=== PATIENT | male | born 1945 | race Caucasian/White ===

== ENCOUNTER 2022-03-28 03:18 | Inpatient (IN) | payer BC ==
[~2022-03-28] VITALS: Ht 177.8 cm; Wt 72.6 kg
[2022-03-28 04:50] LABS: HEMATOCRIT 45.5 % (36.7-47.1); MEAN CORPUSCULAR HEMOGLOBIN 35.7 uug (23.8-33.4); MEAN CORPUSCULAR VOLUME 104.3 fL (73.0-96.2); PLATELET COUNT (AUTO) 82 K/uL (152-348)
[2022-03-28 05:01] LABS: CARBON DIOXIDE 26 mmol/L (21-32); CHLORIDE 109 mmol/L (98-107); CREATININE 0.8 mg/dL (0.6-1.3); ETHANOL 18 MG/DL (0-0); GLUCOSE 91 mg/dL (74-106); POTASSIUM 3.9 mmol/L (3.5-5.1); UREA NITROGEN, BLOOD 15 mg/dL (7-18)
[2022-03-28 05:07] LABS: ALANINE AMINOTRANSFERASE 24 U/L (16-63); ALKALINE PHOSPHATASE 82 U/L (50-136); ASPARTATE AMINOTRANSFERASE 19 U/L (15-37); BILIRUBIN,DIRECT 0.2 mg/dL (0.0-0.2); BILIRUBIN,TOTAL 0.9 mg/dL (0.2-1.0)
--- NOTE | 2022-03-28 05:57 | NUR ---
Dr. Nomi adams for panel call
[2022-03-28] MEDS ORDERED: AZITHROMYCIN IV 500 MG in IV DEXTROSE 5% 250 ML IV ONE (06:00)
[2022-03-28] MEDS ORDERED: CEFTRIAXONE 1 G in IV DEXTROSE 5% 50 ML IV ONE (06:00)
[2022-03-28] MEDS ORDERED: methylPREDNISolone SOD SUCC 125 MG/2 ML VIAL IV ONE (06:00)
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
[2022-03-28] MEDS ORDERED: ALBUTEROL SULFATE 2.5 MG/3 ML NEBU NEB ONE (06:30)
[2022-03-28] MEDS ORDERED: CEFTRIAXONE /D5W 50ML IVPB **ER PYXIS IV ONE (06:35)
[2022-03-28] MEDS ORDERED: AZITHROMYCIN 500MG/ D5W 250ML IVPB **ER PYXIS ONLY IV ONE (06:36)
[2022-03-28] MEDS ORDERED: methylPREDNISolone SOD SUCC 125 MG/2 ML VIAL ONE (06:36)
[2022-03-28] MEDS: PANTOPRAZOLE SODIUM 40 MG TABLET.DR PO SCH (07:00)
[2022-03-28] MEDS ORDERED: MAGNESIUM HYDROXIDE 30 ML LIQUID UDC PO PRN (07:00)
[2022-03-28] MEDS ORDERED: ONDANSETRON 4 MG/2 ML VIAL IV PRN (07:00)
[2022-03-28] MEDS ORDERED: ACETAMINOPHEN 325 MG TABLET PO PRN (07:00)
[2022-03-28] MEDS ORDERED: REMEDY ESSENTIAL ZINC PASTE 113 GM TP PRN (07:00)
[2022-03-28] MEDS: CEFTRIAXONE 1 G in IV DEXTROSE 5% 50 ML IV SCH (07:13)
--- NOTE | 2022-03-28 07:15 | NUR ---
Spoke with Olman/pharmacy to take a look at the dosing for azithromycin. First dose was started at 0630.
--- NOTE | 2022-03-28 08:41 | NUR ---
PT AWAKE AND VERBALLY RESPONSIVE. AT BEDSIDE. TOLERATED BREAKFAST. REPORT GIVE3N TO RA APARICIO.
--- NOTE | 2022-03-28 09:33 | NUR ---
transferred to telemetry via to rm [id number].
[2022-03-28 10:30] VITALS: BP 147/82
--- NOTE | 2022-03-28 10:42 | NUR ---
Received pt from ER. Pt admitted to telemetry status. Pt seems alert and oriented x 3-4 at this time. He was able to provide medical history along with at bedside. Pt is calm and cooperative at this time with no complaints of pain or shortness of breath. Pt taken for CT chest without contrast. Will continue to monitor. Presents with sinus rhythm with 1st degree av block and bundle branch block.
[2022-03-28] MEDS ORDERED: methylPREDNISolone SOD SUCC 40 MG/ML VIAL IV SCH (12:00)
[2022-03-28] MEDS ORDERED: LORAZEPAM 2 MG/1 ML VIAL IV PRN (13:45)
[2022-03-28] MEDS: THIAMINE HCL 100 MG TABLET PO SCH (14:00)
[2022-03-28] MEDS: FOLIC ACID 1 MG TABLET PO SCH (14:01)
[2022-03-28 16:00] VITALS: BP 138/79
--- NOTE | 2022-03-28 18:47 | NUR ---
Pt is a/o x 3, confused but verbalizes understanding when reoriented. Pt was cooperative with care throughout shift, no events occurred. Chest CT was done today showing opacities in left lung. Pt has long history of bad left lung health. ( refer to pt history). IV patent and intact.
[2022-03-28 20:54] VITALS: BP 135/73
[2022-03-28] MEDS: METOPROLOL TARTRATE 25 MG TABLET PO SCH (20:56)
[2022-03-29 00:36] VITALS: BP 139/75
[2022-03-29 04:38] VITALS: BP 139/76
[2022-03-29] MEDS ORDERED: AZITHROMYCIN IV 500 MG in IV DEXTROSE 5% 250 ML IV SCH (06:00)
[2022-03-29] MEDS: CEFTRIAXONE 1 G in IV DEXTROSE 5% 50 ML IV SCH (06:12)
[2022-03-29] MEDS: PANTOPRAZOLE SODIUM 40 MG TABLET.DR PO SCH (07:00)
[2022-03-29 07:46] LABS: THYROID STIMULATING HORMONE 0.364 mIU/mL (0.358-3.740)
[2022-03-29 07:47] LABS: BILIRUBIN,TOTAL 0.9 mg/dL (0.2-1.0); CREATININE 0.6 mg/dL (0.6-1.3); MAGNESIUM 1.8 mg/dL (1.8-2.4); POTASSIUM 3.5 mmol/L (3.5-5.1); TOTAL PROTEIN, SERUM 6.3 g/dL (6.4-8.2)
[2022-03-29 07:57] LABS: HEMATOCRIT 41.9 % (36.7-47.1); MEAN CORPUSCULAR HEMOGLOBIN 35.9 uug (23.8-33.4); MEAN CORPUSCULAR VOLUME 104.1 fL (73.0-96.2); PLATELET COUNT (AUTO) 84 K/uL (152-348)
--- NOTE | 2022-03-29 08:00 | NUR ---
PT confused. Alert x 1 to name. Reorient patient to time and place. PT has good appetite for breakfast. Sitting at edge of bed. PT ambulate with SBA to bathroom. Fall precaution implemented. Denies any c/o pain.
[2022-03-29] MEDS: THIAMINE HCL 100 MG TABLET PO SCH (08:21)
[2022-03-29] MEDS: FOLIC ACID 1 MG TABLET PO SCH (08:21)
[2022-03-29] MEDS: MULTIVITAMINS,THERAPEUTIC TABLET PO SCH (08:21)
[2022-03-29] MEDS: METOPROLOL TARTRATE 25 MG TABLET PO SCH ×2 (08:26→21:28)
[2022-03-29 09:22] LABS: LYMPHOCYTES % (MANUAL) 6 % (20-40); MONOCYTES % (MANUAL) 3 % (2-10); NEUTROPHILS % (MANUAL) 91 % (42-75)
--- NOTE | 2022-03-29 10:35 | NUR ---
PT pacing and getting more agitated. Pulled out his iv on right upper arm. Pt refusing to have iv restarted and tele monitor taken off by patient. Pt pacing in hallway. Ativan given for agitation.
--- NOTE | 2022-03-29 11:00 | NUR ---
PT less aggitated and resting in bed. Ativan effective.
[2022-03-29] MEDS ORDERED: LORAZEPAM 2 MG/1 ML VIAL IM PRN ×2 (13:30)
[2022-03-29] MEDS ORDERED: LORAZEPAM 2 MG/1 ML VIAL IV PRN (13:45)
[2022-03-29 14:16] VITALS: BP 117/64
[2022-03-29 16:19] VITALS: BP 103/61
--- NOTE | 2022-03-29 18:52 | NUR ---
Ativan given x 2 this shift. Pt gets agitated and and anxious. PT seen by Dr Han earlier notified unable to restart IV. Zithromax changed to po and Ativan given IM. Pt currently sleeping in bed comfortable.
[2022-03-29 20:33] VITALS: BP 111/76
[2022-03-30 04:09] VITALS: BP 145/81
[2022-03-30] MEDS: LORAZEPAM 2 MG/1 ML VIAL IM PRN ×2 (05:08→21:23)
[2022-03-30] MEDS: AZITHROMYCIN 250 MG TABLET PO SCH (06:21)
[2022-03-30] MEDS: PANTOPRAZOLE SODIUM 40 MG TABLET.DR PO SCH (07:00)
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
[2022-03-30] MEDS: CEFTRIAXONE 1 G in IV DEXTROSE 5% 50 ML IV SCH (09:37)
[2022-03-30] MEDS: MULTIVITAMINS,THERAPEUTIC TABLET PO SCH (09:41)
[2022-03-30] MEDS: FOLIC ACID 1 MG TABLET PO SCH (09:41)
[2022-03-30] MEDS: THIAMINE HCL 100 MG TABLET PO SCH (09:41)
[2022-03-30] MEDS: METOPROLOL TARTRATE 25 MG TABLET PO SCH ×2 (09:42→20:45)
--- NOTE | 2022-03-30 09:51 | NUR ---
Awake alert to self only. No ss of pain or resp distress. With periods of agitation, reoriented prn. Able to insert 20g iv on left hand and iv atb was given. Safety measures in place. Needs attended. Closely monitored.
[2022-03-30 11:36] VITALS: BP 123/69
--- NOTE | 2022-03-30 12:56 | NUR ---
is here and gave Timolol's medication which is endorsed to pharmacy. Per , she will call later as to which eye to put the eye drops.
[2022-03-30] MEDS ORDERED: TIMO5DRO18 RIGHTEYE (14:31)
[2022-03-30] MEDS: LORAZEPAM 2 MG/1 ML VIAL IV PRN (14:39)
[2022-03-30 16:00] VITALS: BP 133/73
--- NOTE | 2022-03-30 16:03 | NUR ---
Patient was agitated earlier, getting off the bed unassisted unable to be redirected. Ativan Iv given as ordered with some help. Will cont to observe.
[2022-03-30 20:09] VITALS: BP 120/72
--- NOTE | 2022-03-30 21:15 | NUR ---
PATIENT AWAKE IN HAIR-CHAIR. VERY AGITATED AND CONFUSED. IV HEPLOCK NOTED TO LEFT HAND, DISLODGED. PATIENT GIVEN ATIVAN 1MG IM PRN ORDERED. WILL RE-INSERT. ALL NEEDS ATTENDED.
[2022-03-31 04:00] VITALS: BP 119/70
[2022-03-31] MEDS: AZITHROMYCIN 250 MG TABLET PO SCH (05:59)
[2022-03-31] MEDS: PANTOPRAZOLE SODIUM 40 MG TABLET.DR PO SCH (06:00)
[2022-03-31 06:44] LABS: HEMATOCRIT 51.7 % (36.7-47.1); MEAN CORPUSCULAR HEMOGLOBIN 36.2 uug (23.8-33.4); MEAN CORPUSCULAR VOLUME 106.2 fL (73.0-96.2); PLATELET COUNT (AUTO) 51 K/uL (152-348)
[2022-03-31 07:21] LABS: BILIRUBIN,TOTAL 1.5 mg/dL (0.2-1.0); CREATININE 0.8 mg/dL (0.6-1.3); PHOSPHOROUS 2.9 mg/dL (2.5-4.9); POTASSIUM 4.1 mmol/L (3.5-5.1); TOTAL PROTEIN, SERUM 7.2 g/dL (6.4-8.2)
[2022-03-31 08:09] LABS: BASOPHILS % (MANUAL) 1 % (0-2); EOSINOPHILS % (MANUAL) 2 % (0-8); LYMPHOCYTES % (MANUAL) 18 % (20-40); MONOCYTES % (MANUAL) 6 % (2-10); NEUTROPHILS % (MANUAL) 73 % (42-75)
[2022-03-31] MEDS: LORAZEPAM 2 MG/1 ML VIAL IV PRN (08:16)
[2022-03-31] MEDS: CEFTRIAXONE 1 G in IV DEXTROSE 5% 50 ML IV SCH (08:17)
[2022-03-31] MEDS: MULTIVITAMINS,THERAPEUTIC TABLET PO SCH (08:17)
[2022-03-31] MEDS: FOLIC ACID 1 MG TABLET PO SCH (08:17)
[2022-03-31] MEDS: THIAMINE HCL 100 MG TABLET PO SCH (08:17)
[2022-03-31] MEDS: METOPROLOL TARTRATE 25 MG TABLET PO SCH ×2 (08:23→20:49)
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
[2022-03-31] MEDS ORDERED: REMEDY ESSENTIAL ZINC PASTE 113 GM TOP PRN (10:30)
[2022-03-31 11:51] VITALS: BP 114/68
[2022-03-31] MEDS: REMEDY ESSENTIAL ZINC PASTE 113 GM TOP SCH ×2 (12:00→20:50)
--- NOTE | 2022-03-31 12:00 | NUR ---
Spoke to Art from Crisis team and requested evaluation as per Dr. Ochoa for Gravely disabled hold evaluation.
--- NOTE | 2022-03-31 13:30 | NUR ---
Spoke to Trisha, Mental health unit trust manager, who states patient does not qualify for crisis team evaluation. Trisha spoke to patients at bed side and made her aware.
[2022-03-31] MEDS ORDERED: [UNRECOGNIZED DRUG - OTHER] RIGHTEYE SCH (14:00)
[2022-03-31] MEDS ORDERED: TIMOLOL 0.5% RIGHTEYE SCH (14:00)
--- NOTE | 2022-03-31 14:30 | NUR ---
Patient continues to be agitated and pulled out IV to right hand. Able to apply pressure and stop bleeding.
[2022-03-31 16:11] VITALS: BP 130/71
--- NOTE | 2022-03-31 16:14 | NUR ---
SW consult was requested for a patient on [facility]sur to assess current living situation. Patient is a 77-year-old male. The patient is not oriented or alert. Patient appears confused and disoriented. Patients , Roseann Mcknight ([phone]) was in the room with him during the assessment. Roseann ([phone]) stated that the patient currently lives at [address] [place] [address] with her. Patients stated that the patient does not have any medical equipment at home and is not currently driving. Patients states that the patient does have a history of alcohol abuse. The toxicology screen is .02 for alcohol. SW offered the patients substance abuse resources and the patients refused. Patients stated, the resources would not be able to help him now. SW placed the substance abuse resources in the patients chart. Patients states the patient does not have a history of psychiatric diagnosis, but states that the patient appears to be having visual or auditory hallucinations and delusions. The patients states she would be open to the patient going to a locked half-way facility. This SW spoke with Rigoberto, onsite case manager who followed up with the discharge plan.
[2022-03-31] MEDS: OLANZAPINE 2.5 MG TABLET PO SCH (16:55)
[2022-03-31] MEDS: CLOTRIMAZOLE 1% CREAM 30 GM TUBE TOP SCH (17:00)
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
[2022-03-31 20:00] VITALS: BP 133/72
[2022-03-31] MEDS: DIVALPROEX 125 MG TABLET.DR PO SCH (20:50)
[2022-04-01 04:00] VITALS: BP 111/74
--- NOTE | 2022-04-01 05:32 | NUR ---
Slept intermittently, pt very restless. Constantly having to be reoriented. Safety maintained throughout the shift. No distress maintained. Will endorse to day shift.
[2022-04-01] MEDS: AZITHROMYCIN 250 MG TABLET PO SCH (05:55)
[2022-04-01] MEDS: PANTOPRAZOLE SODIUM 40 MG TABLET.DR PO SCH (06:01)
[2022-04-01] MEDS: MULTIVITAMINS,THERAPEUTIC TABLET PO SCH (08:17)
[2022-04-01] MEDS: CEFTRIAXONE 1 G in IV DEXTROSE 5% 50 ML IV SCH (08:17)
[2022-04-01] MEDS: THIAMINE HCL 100 MG TABLET PO SCH (08:17)
[2022-04-01] MEDS: FOLIC ACID 1 MG TABLET PO SCH (08:17)
[2022-04-01] MEDS: DIVALPROEX 125 MG TABLET.DR PO SCH ×2 (08:17→21:26)
[2022-04-01] MEDS: OLANZAPINE 2.5 MG TABLET PO SCH ×2 (08:18→18:01)
[2022-04-01] MEDS: METOPROLOL TARTRATE 25 MG TABLET PO SCH ×2 (08:39→21:00)
[2022-04-01] MEDS ORDERED: TIMOLOL MALEATE 0.5% OPHT DROP 5 ML BOTTLE RIGHTEYE SCH (09:00)
[2022-04-01] MEDS: REMEDY ESSENTIAL ZINC PASTE 113 GM TOP SCH ×2 (09:13→21:27)
[2022-04-01] MEDS: CLOTRIMAZOLE 1% CREAM 30 GM TUBE TOP SCH ×2 (09:13→17:43)
[2022-04-01 12:00] VITALS: BP 117/70
[2022-04-01] MEDS: TIMOLOL MALEATE 0.5% OPHT DROP 5 ML BOTTLE RIGHTEYE SCH (13:26)
[2022-04-01 15:51] VITALS: BP 136/64
[2022-04-01 20:00] VITALS: BP 105/84
[2022-04-02] MEDS: PANTOPRAZOLE SODIUM 40 MG TABLET.DR PO SCH (07:00)
--- NOTE | 2022-04-02 07:05 | NUR ---
BEDSIDE REPORT OBTAIN AND CARE ASSUME, OOB UP IN RECLINER, UNCOOPERATIVE AND CONFUSED, GAIT UNSTEADY, INCONT OF URINE, PROVIDED PERICARE/ASSISTED TO BR PRN
[2022-04-02 08:00] VITALS: BP 128/72
[2022-04-02] MEDS: CEFTRIAXONE 1 G in IV DEXTROSE 5% 50 ML IV SCH (08:43)
--- NOTE | 2022-04-02 09:00 | NUR ---
INSERTED SL RIGHT WRIST 20G, CUT TUBING WHILE ROCEPHIN INFUSING/RIGHT AC WITH MULTI BRUSING. DISCONTINUED MAP WITH CATH INTACT.ATTEMPTED TO REORIENT BUT PT REMAIN UNCOOPERATIVE.
[2022-04-02] MEDS: DIVALPROEX 125 MG TABLET.DR PO SCH ×2 (09:17→21:05)
[2022-04-02] MEDS: OLANZAPINE 2.5 MG TABLET PO SCH ×2 (09:17→17:31)
[2022-04-02] MEDS: METOPROLOL TARTRATE 25 MG TABLET PO SCH ×2 (09:18→20:36)
[2022-04-02] MEDS: FOLIC ACID 1 MG TABLET PO SCH (09:18)
[2022-04-02] MEDS: MULTIVITAMINS,THERAPEUTIC TABLET PO SCH (09:18)
[2022-04-02] MEDS: CLOTRIMAZOLE 1% CREAM 30 GM TUBE TOP SCH ×2 (09:20→17:32)
[2022-04-02] MEDS: REMEDY ESSENTIAL ZINC PASTE 113 GM TOP SCH ×2 (09:20→21:10)
--- NOTE | 2022-04-02 10:00 | NUR ---
STAYED AT BEDSIDE WHILE ABT ROCEPHIN INFUSING TO PREVENT INJURY AND INFILTRATION.PT REMAIN IN RECLINER
[2022-04-02] MEDS: THIAMINE HCL 100 MG TABLET PO SCH (10:50)
[2022-04-02] MEDS: TIMOLOL MALEATE 0.5% OPHT DROP 5 ML BOTTLE RIGHTEYE SCH (10:51)
--- NOTE | 2022-04-02 12:00 | NUR ---
ASSISTED WITH LUNCH, NO DISTRESS NOTED, SPOKE WITH SPOUSE AND TEXTED DR. REYNOLDS TO CALL PATIENT'S SPOUSE.
[2022-04-02 12:02] VITALS: BP 113/59
[2022-04-02] MEDS: GLUCERNA SHAKE 237 ML CAN PO SCH ×2 (14:03→17:31)
[2022-04-02] MEDS: PROTEIN SUPPLEMENT (PROSTAT) 30 ML LIQUID PO SCH ×2 (14:03→17:58)
[2022-04-02 15:53] VITALS: BP 116/61
--- NOTE | 2022-04-02 17:00 | NUR ---
PT'S SPOUSE IN FOR VISIT AND ASSISTED WITH FEEDING DINNER, PT CALM/COOPERATIVE, ASSISTED TO BR, RENDER PERICARE AND ASSISTED TO BED.NO INJURIES ON SHIFT AND NO DISTRESS NOTED.
--- NOTE | 2022-04-02 19:12 | NUR ---
REPORT GIVEN TO INCOMING RN ASSUMING CARE.
[2022-04-02 20:18] VITALS: BP 121/60
[2022-04-03 04:58] VITALS: BP 120/64
--- NOTE | 2022-04-03 05:26 | NUR ---
Received patient in bed asleep, able to wake up for care, alert to self. No noted acute distress, no signs of pain/discomfort. Due meds given. Slept well, no noted agitation. Left bed at lowest position with call light within easy reach. Needs attended.
[2022-04-03] MEDS: PANTOPRAZOLE SODIUM 40 MG TABLET.DR PO SCH (06:11)
[2022-04-03] MEDS: METOPROLOL TARTRATE 25 MG TABLET PO SCH (09:00)
[2022-04-03] MEDS: PROTEIN SUPPLEMENT (PROSTAT) 30 ML LIQUID PO SCH ×3 (09:05→16:26)
[2022-04-03] MEDS: GLUCERNA SHAKE 237 ML CAN PO SCH ×3 (09:05→16:26)
[2022-04-03] MEDS: CEFTRIAXONE 1 G in IV DEXTROSE 5% 50 ML IV SCH (09:05)
[2022-04-03] MEDS: FOLIC ACID 1 MG TABLET PO SCH (09:06)
[2022-04-03] MEDS: OLANZAPINE 2.5 MG TABLET PO SCH ×2 (09:06→16:26)
[2022-04-03] MEDS: MULTIVITAMINS,THERAPEUTIC TABLET PO SCH (09:06)
[2022-04-03] MEDS: DIVALPROEX 125 MG TABLET.DR PO SCH (09:06)
[2022-04-03] MEDS: THIAMINE HCL 100 MG TABLET PO SCH (09:06)
[2022-04-03] MEDS: REMEDY ESSENTIAL ZINC PASTE 113 GM TOP SCH (09:10)
[2022-04-03] MEDS: TIMOLOL MALEATE 0.5% OPHT DROP 5 ML BOTTLE RIGHTEYE SCH (09:10)
[2022-04-03] MEDS: CLOTRIMAZOLE 1% CREAM 30 GM TUBE TOP SCH ×2 (09:17→16:32)
[2022-04-03 12:00] VITALS: BP 109/57
[2022-04-03 16:00] VITALS: BP 108/66
--- NOTE | 2022-04-03 17:13 | NUR ---
Pt is a/o x 1, confused, wanders if not in geriatric chair. Pt is compliant with medications, takes pills whole but incapable of retaining any education or comprehending communication. Pt at bedside at this time. Discharge planning is going home vs SNF if placement can be found.
--- NOTE | 2022-04-03 18:59 | NUR ---
pT HAS BEEN DISCHARGED. aLL PERSONAL BELONGINGS SENT HOME WITH EXCEPT EYE DROPS THAT WERE SENT HOME WITH PT WITH AMBULANCE. ALL DISCHARGE EDUCATIOM
--- NOTE | 2022-04-03 19:00 | NUR ---
ALL DISCHARGE EDUCATION GIVEN TO ALONG WITH MEDICATION LIST. IV AND ID BANDS REMOVED. PT REFUSED TO HAVE PICTURES TAKEN PRIOR TO DISCHARGE. HELPED PT ONTO STRETCHER WITH TWO SECURITY GUARDS, RN, AND TWO MINIBUS DRIVER FROM AMBULANCE TRANSP[facility]. PT WILL BE TAKEN HOME, AWARE AND AGREEABLE.
== END 2022-04-03 07:00 | disposition home health service (06) | DRG 177 ==
LOC: ER 03:59 → TELE3 09:06 → MEDSURG3 03-29 13:46
PROVIDERS: ADMIT Internal Medicine
DX: J69.0 Pneumonitis due to inhalation of food and vomit (principal); G92.8 Other toxic encephalopathy; F10.139 Alcohol abuse with withdrawal, unspecified; J47.0 Bronchiectasis with acute lower respiratory infection; I45.2 Bifascicular block; Z20.822 Contact with and (suspected) exposure to COVID-19; D69.6 Thrombocytopenia, unspecified; D75.89 Other specified diseases of blood and blood-forming organs; Z87.891 Personal history of nicotine dependence; Z85.118 Personal history of other malignant neoplasm of bronchus and lung; M19.90 Unspecified osteoarthritis, unspecified site; M85.80 Other specified disorders of bone density and structure, unspecified site; E53.8 Deficiency of other specified B group vitamins; I25.10 Atherosclerotic heart disease of native coronary artery without angina pectoris; Y90.0 Blood alcohol level of less than 20 mg/100 ml; I87.8 Other specified disorders of veins; F29 Unspecified psychosis not due to a substance or known physiological condition; F01.50 Vascular dementia, unspecified severity, without behavioral disturbance, psychotic disturbance, mood disturbance, and anxiety; G30.9 Alzheimer's disease, unspecified; F02.80 Dementia in other diseases classified elsewhere, unspecified severity, without behavioral disturbance, psychotic disturbance, mood disturbance, and anxiety; J42 Unspecified chronic bronchitis; F10.129 Alcohol abuse with intoxication, unspecified; D72.819 Decreased white blood cell count, unspecified; H40.9 Unspecified glaucoma; I11.0 Hypertensive heart disease with heart failure; I50.9 Heart failure, unspecified
CPT/HCPCS: 36415; 70030-TC; 70450; 71045; 71250; 83605; 83735; 84100; 84443; 84484; 85025; 93005; 93307; 97161; A4663; G0378; G0480; J0456; J0696; J2060; J2930; J7050; Q0144